=== PATIENT | male | born 1960 | race Caucasian/White ===

== ENCOUNTER → 2020-03-16 09:11 | Outpatient (CLI) | payer OTHER, SELFPAY ==
--- NOTE | ~2020-03-16 | XR_ITS ---
EXAMINATION: XR hip BI 2V w AP pelvis DATE: 03/16/2020 09:37 INDICATION: Bilateral hip pain TECHNIQUE: AP view the pelvis and two views of each hip were obtained. COMPARISON: None. FINDINGS: Bone alignment is normal. There is no fracture. There is moderate to severe left and mild-t o-moderate right hip osteoarthritis. Phleboliths are noted in the pelvis. Moderate to severe lower donna mbar spondylosis is present. IMPRESSION: 1. Moderate to severe left and mild to moderate right hip osteoarthritis. Reviewed, dictated and finalized at location A.
== END ==
PROVIDERS: PCP Internal Medicine; Visit Provider Internal Medicine
DX: M25.559 Pain in unspecified hip (principal); M16.0 Bilateral primary osteoarthritis of hip
CPT/HCPCS: 73521

== ENCOUNTER 2020-10-18 09:47 | Outpatient (CLI) | payer OTHER, SELFPAY ==
--- NOTE | 2020-10-18 11:09 | ECG_ITS ---
Measurements Intervals [place] Rate: 65 P: 24 IA: 146 QRS: -7 QRSD: 104 T: 55 QT: 380 QTc: 398 Interpretive Statements SINUS RHYTHM WITH SINUS ARRHYTHMIA POOR R WAVE PROGRESSION, ANTERIOR LEADS BASELINE ARTIFACT- I, II, AVR, AVL, AVF BORDERLINE ECG Electronically Signed On 10-18-2020 11:24:26 CDT by Jose Miguel Wagner D.O.
[2020-10-18 11:43] LABS: Urine Cotinine NEGATIVE
== END 2020-10-18 09:48 | disposition home or self-care (01) ==
PROVIDERS: PCP Internal Medicine; Visit Provider Orthopaedic Surgery
DX: Z01.818 Encounter for other preprocedural examination (principal); M16.12 Unilateral primary osteoarthritis, left hip; I49.9 Cardiac arrhythmia, unspecified; Z51.81 Encounter for therapeutic drug level monitoring; Z79.899 Other long term (current) drug therapy
CPT/HCPCS: 80307; 87081; 93005

== ENCOUNTER → 2020-10-30 08:11 | Outpatient (CLI) | payer OTHER, SELFPAY ==
[2020-10-30 19:28] LABS: SARS-CoV-2 RNA PCR Negative
== END ==
PROVIDERS: PCP Internal Medicine; Visit Provider Orthopaedic Surgery
DX: Z01.812 Encounter for preprocedural laboratory examination (principal); Z20.822 Contact with and (suspected) exposure to COVID-19
CPT/HCPCS: C9803; U0003; U0005

== ENCOUNTER 2020-10-31 00:34 | Day surgery (SDC) | payer OTHER, SELFPAY ==
[2020-10-18 10:09] VITALS: BMI 33.6
[2020-10-18 10:35] VITALS: BP 133/77; PULSE 70; RESP 16; TEMP 36.7; O2SAT 100
[2020-10-31] VITALS (12 sets, daily range): BP systolic 115–142; BP diastolic 7–82; PULSE 70–85; RESP 16–20; TEMP 35.7–37; O2SAT 94–100
--- NOTE | ~2020-10-31 | XR_ITS ---
EXAMINATION: XR hip LT min 2V DATE: 10/31/2020 13:19 INDICATION: Left hip arthroplasty. Postop. TECHNIQUE: 2 views of left hip were obtained. COMPARISON: Left hip radiographs 10/02/2020 FINDINGS: There is a total left hip arthroplasty in near-anatomic alignment. No fracture. There is ga s in the soft tissues, consistent with recent surgery. IMPRESSION: 1. Total left hip arthroplasty in near-anatomic alignment. Reviewed, dictated and finalized at location A.
--- NOTE | 2020-10-31 07:19 | WPDHPUPDATE1 ---
History and Physical Update Update Date/Time: 10/31/20 07:19 History and Physical has been reviewed, including an updated exam of the patient. There are NO changes in the patient's condition. Risks, benefits, and alternatives have been discussed and questions answered. Patient agrees to proceed with procedure.
--- NOTE | 2020-10-31 08:51 | WPDANESEPPF ---
Anes - Initial Pre Proc Eval Procedure: Operation Date: 10/31/20 10:30 Proposed Procedures p Left Total Hip Arthroplasty - Ja Macdonald MD Date/Time: 10/31/20 08:51 Surgeon: Ja Macdonald MD Pre Op Diagnosis: Left Hip OA Patient Data Age: 59 Gender: M Height: 5 ft 8 in Weight: 100.3 kg Last Vital Signs Temp 36.7 C 10/18/20 10:35 Pulse 70 10/18/20 10:35 Resp 16 10/18/20 10:35 BP 133/77 10/18/20 10:35 Pulse Ox 100 10/18/20 10:35 Allergies Allergy/AdvReac Type Severity Reaction Status Date / Time No Known Allergies Allergy Verified 10/18/20 10:10 Home Medications Medication Instructions Recorded Confirmed Type aspirin 81 mg tablet,delayed 81 mg PO DAILY 06/16/19 10/18/20 History release multivitamin 1 tablet PO DAILY #1 tablet 06/16/19 10/18/20 Rx blood sugar diagnostic #100 each 04/19/20 10/02/20 Rx blood-glucose meter #1 each 04/19/20 10/02/20 Rx empagliflozin 10 mg tablet 10 mg PO DAILY #90 tablet 10/03/20 10/18/20 Rx Emergen-C Immune Plus 1 tablet PO DAILY 10/18/20 10/18/20 History cholecalciferol (vitamin D3) 50 mcg PO DAILY 10/18/20 10/18/20 History lisinopril 10 mg PO QAM 10/18/20 10/18/20 History metformin 500 mg PO QPM 10/18/20 10/18/20 History naproxen sodium [Aleve] 440 mg PO PRN PRN 10/18/20 10/18/20 History Patient hx anesthesia problems: none Family hx anesthesia problems: none PMFSH Past Medical History Medical History Deviated septum (~1996) Diabetes Dyslipidemia Elevated blood pressure reading Essential hypertension Fatty liver Primary osteoarthritis of both hips Trochanteric bursitis Social History Social History Smoking status: Never smoker Additional smoking assessment comments: DENIES ANY FORM OF TOBACCO USE Alcohol intake: current Drinks per week: 3 Substance use: never Living arrangements: with family Gender identity (if verbalized by the patient): Male Spiritual care concerns: No Anes - Eval Final PreProcedure Day of Procedure 10/31/20 08:51 Patient weight: obese Heart: regular rate and rhythm Lungs: clear to auscultation Airway: Mallampati scale class III Neurological: alert and oriented Last oral intake: >/= 8 hours ASA classification: III Emergent: no Anesthetic plan: proceed Anesthesia type and monitoring: general ETT and standard monitoring Informed Consent: The patient's anesthetic plan and its attendant risks and benefits were discussed with the patient/family/POA. Questions were solicited and answers provided to the satisfaction of the patient/family/POA.
[2020-10-31] MEDS: LACTATED RINGERS 1,000 ML 30 ML IV CONT ×2 (09:00→12:59)
[2020-10-31] MEDS: ACETAMINOPHEN 500 MG TABLET 1000 MG PO (09:17)
[2020-10-31] MEDS: TRANEXAMIC ACID 1,000MG/ISO100 1,000 MG/100 ML BAG 200 MG IVPB (09:17)
[2020-10-31 09:26] LABS: Glucose Point of Care 120 (65-105)
[2020-10-31] MEDS: ceFAZolin 2 GM/D5W 50 ML 2 GM/50 ML BAG IVPB (10:18)
[2020-10-31 13:07] LABS: Glucose Point of Care 153 (65-105)
--- NOTE | 2020-10-31 13:44 | PM.PROC ---
Procedure Note - Detailed Date of procedure: 10/31/20 Pre-op diagnosis: Left Hip OA Post-op diagnosis: same Procedure performed: Total hip arthroplasty. Description of procedure: Very large anterior osteophyte in the capsule, excised. Bone quality very good. Proximal fit was excellent; distal reaming not required. Pre op leg length slightly short. Implants: The Accolade II hip stem, 127 degree size 5 , was utilized with excellent press-fit. The 54 mm ADM acetabular component was impacted with excellent press-fit stability. The +0 , 28 mm Biolox ceramic femoral head was utilized. Anesthesia: [facility] Surgeon: Ja Macdonald MD Malt Loader: Matilde Nath PA-C Estimated blood loss (mL): 200 Drains: No Pathology: none sent Complications: None Condition: stable Findings: Physician technical services assistant, Matilde Nath PA-C, required for surgery; including patient positioning, draping, tissue retraction, maintaining instrument position, dislocation and reduction of the hip joint. Wound closure, and dressing placement. OPERATIVE DETAILS: The patient was given preoperative antibiotics. A general anesthetic was administered. The patient was carefully placed in the lateral decubitus position on the PEG board. The shoulders and hips were carefully positioned for component and leg length positioning reference. The hip was prepped and draped in the usual sterile fashion. A longitudinal incision was created over the posterior aspect of the greater trochanter. Careful dissection was brought down through the deep fascia with electrocautery. A minimally invasive optimized posterior approach to the hip was performed. The short external rotators and capsule were taken down in an L-shaped capsulotomy. The tissue was tagged for later repair using number 2 high strength suture. The femoral neck was measured and taken in situ. The femoral head was removed. The acetabulum was carefully exposed. The inferior capsule was released. The labrum was resected. The acetabulum was sequentially reamed to one over the intended cup size. The cup was impacted into position with excellent press-fit. Typical anatomic landmarks, including the bony contact points as well as the inferior transverse acetabular ligament were used to confirm cup positioning with preoperative templating. Attention was turned to the femur, which was carefully exposed. The hip was reamed and then broached sequentially. Excellent press-fit was obtained with the broach. The hip was trialed. Measurements were utilized, including the lesser trochanter as well as the center of the femoral head and the tip of the trochanter, and excellent assessment of the offset and leg lengths were confirmed. The real component was impacted into position. Trialing confirmed appropriate leg length and offset with soft tissue balancing as well apparent feel of the leg, both at the knee and the heel. Soft tissues were assessed using the the iliotibial band. Reduction of the posterior capsule and external rotators were also used as a secondary assessment. The hip was copiously irrigated with pulsatile lavage antibiotic solution periodically throughout the procedure. The real components were then assembled and reduced. The hip was stable throughout typical maneuvers, including extension, external rotation to 70 degrees, the position of sleep as well as flexion to 90 degrees with internal rotation past 45 degrees. The shake test confirmed stability without impingement. Osteophytes were removed as necessary. The short external rotators and capsule were repaired back to the posterior trochanter through drill holes. The deep fascia was repaired with running number 2 Quill suture, followed by 0 Stratafix suture and 2-0 Stratafix suture in the dermis. Steri-Strips were placed on the skin, followed by a sterile silver occlusive dressing. There were no complications. Meticulous hemostasis was maintained with the AquaMantys device. The patient was brought to t
[2020-10-31] MEDS: SODIUM CHLORIDE 0.9% IV 1,000 ML 125 ML IV CONT (14:16)
[2020-10-31] MEDS: KETOROLAC 15 MG/ML VIAL (*BKC) IV PUSH ×2 (14:16→20:47)
[2020-10-31 14:20] LABS: Hemoglobin 14.6 g/dL (14.0-18.0)
--- NOTE | 2020-10-31 14:34 | ADMGEN ---
This patient, Satnam Dawson, was admitted to 2 Medical Room 258-01. Patient/family oriented to hospital policies and general routines including ID bracelet, bed and alarms, visiting hours, pain management, procedures, bathroom and other care routines, personal items, smoking policy, room service/diet, and visiting hours. Information on how to activate the Rapid Response Team has been discussed. Patient/Family are encouraged to report perceived risks to care and to ask questions if they do not understand what they are told or what they should do.
[2020-10-31] MEDS: oxyCODONE HCL (*CRX) 5 MG TAB IR 10 MG PO (14:48)
[2020-10-31] MEDS: ONDANSETRON INJ 4 MG/2 ML VIAL IV PUSH (15:17)
[2020-10-31] MEDS: DOCUSATE SODIUM 100 MG CAPSULE PO (18:32)
[2020-10-31] MEDS: metFORMIN HCL 500 MG TABLET PO (18:33)
[2020-10-31] MEDS: oxyCODONE HCL (*CRX) 5 MG TAB IR PO (18:33)
[2020-10-31 18:47] LABS: Glucose Point of Care 183 (65-105)
[2020-10-31 22:52] LABS: Glucose Point of Care 147 (65-105)
[2020-11-01 02:00] VITALS: BP 118/69; PULSE 79; RESP 18; TEMP 36.6; O2SAT 100
[2020-11-01] MEDS: KETOROLAC 15 MG/ML VIAL (*BKC) IV PUSH ×2 (02:56→08:06)
[2020-11-01 05:29] LABS: Basophils Percent Auto 0.3 % (0.2-1.2); Eosinophils Absolute Auto 0.1 K/mm3 (0-0.3); Eosinophils Percent Auto 0.7 % (0-4.4); Hematocrit 38.3 % (42.0-52.0); Hemoglobin 12.9 g/dL (14.0-18.0); Immature Granulocyte Absolute 0.06 K/mm3 (0.00-0.031); Immature Granulocyte Percent A 0.4 % (0-0.5); Lymphocytes Absolute Auto 2.26 K/mm3 (0.9-3.2); Lymphocytes Percent Auto 16.9 % (18.3-44.2); Mean Corpuscular HGB Conc 33.7 g/dl (32-36); Mean Corpuscular Hemoglobin 30.2 pg (26-34); Mean Corpuscular Volume 89.7 fl (80-100); Mean Platelet Volume 9.6 fl (7.4-10.4); Monocytes Absolute Auto 1.6 K/mm3 (0.1-0.6); Monocytes Percent Auto 11.6 % (2.6-8.5); Neutrophils Absolute Auto 9.4 K/mm3 (1.3-6.7); Neutrophils Percent Auto 70.1 % (45.5-73.1); Platelet Count Result 195 k/mm3 (150-375); Red Blood Count 4.27 M/mm3 (4.6-6.20); Red Cell Distribution Width 13.3 % (11.5-14.5); White Blood Count 13.4 K/mm3 (4.5-10.0)
[2020-11-01 05:42] LABS: Anion Gap 6 mmol/L (8-16); Blood Urea Nitrogen 18 mg/dL (9-20); Calcium 8.5 mg/dL (8.4-10.2); Carbon Dioxide 25 mmol/L (22-30); Chloride 107 mmol/L (98-107); Estimated CRCL calculation 89 ml/min; Estimated Glomerular Filt Rate > 60; Glucose 104 mg/dL (75-110); Sodium 138 mmol/L (137-145)
[2020-11-01 06:17] VITALS: BP 122/78; PULSE 80; RESP 16; TEMP 36.8; O2SAT 98
[2020-11-01 07:44] LABS: Glucose Point of Care 96 (65-105)
--- NOTE | 2020-11-01 07:56 | WPDANESPN ---
Anes - Prog Note Post-Op Date/Time: 11/01/20 07:56 Cardiovascular status: normal Respiratory status: normal Airway patency: baseline Mental status: baseline Post-Op hydration status: normal Vital Signs: Last Vital Signs Temp 36.8 C 11/01/20 06:17 Pulse 80 11/01/20 06:17 Resp 16 11/01/20 06:17 BP 122/78 11/01/20 06:17 Pulse Ox 98 11/01/20 06:17 Pain Score (VAS): 2 I/O: Intake & Output 10/31/20 10/31/20 11/01/20 15:59 23:59 07:59 Intake Total 450 770 550 Output Total 450 450 Balance 450 320 100 Laboratory Tests 11/01/20 05:18 11/01/20 05:18 10/31/20 10/31/20 10/31/20 08:51 09:19 13:04 WBC RBC Hgb Hct MCV MCH MCHC RDW Plt Count MPV Immature Gran % (Auto) Neut % (Auto) Lymph % (Auto) [place] % (Auto) Eos % (Auto) Baso % (Auto) Lymph # (Auto) [place] # (Auto) Eos # (Auto) Baso # (Auto) Abs Immat Gran (auto) Absolute Neuts (auto) Absolute Nucleated RBC Nucleated RBC % Sodium Potassium Chloride Carbon Dioxide Anion Gap BUN Creatinine Estim Creat Clear Calc Estimated GFR Glucose POC Capillary Glucose 120 H 153 H Calcium Blood Type A Positive Antibody Screen Negative 10/31/20 10/31/20 10/31/20 14:12 18:32 20:45 WBC RBC Hgb 14.6 Hct 43.0 MCV MCH MCHC RDW Plt Count MPV Immature Gran % (Auto) Neut % (Auto) Lymph % (Auto) [place] % (Auto) Eos % (Auto) Baso % (Auto) Lymph # (Auto) [place] # (Auto) Eos # (Auto) Baso # (Auto) Abs Immat Gran (auto) Absolute Neuts (auto) Absolute Nucleated RBC Nucleated RBC % Sodium Potassium Chloride Carbon Dioxide Anion Gap BUN Creatinine Estim Creat Clear Calc Estimated GFR Glucose POC Capillary Glucose 183 H 147 H Calcium Blood Type Antibody Screen 11/01/20 11/01/20 11/01/20 05:18 05:18 07:14 WBC 13.4 H RBC 4.27 L Hgb 12.9 L Hct 38.3 L MCV 89.7 MCH 30.2 MCHC 33.7 RDW 13.3 Plt Count 195 MPV 9.6 Immature Gran % (Auto) 0.4 Neut % (Auto) 70.1 Lymph % (Auto) 16.9 L [place] % (Auto) 11.6 H Eos % (Auto) 0.7 Baso % (Auto) 0.3 Lymph # (Auto) 2.26 [place] # (Auto) 1.6 H Eos # (Auto) 0.1 Baso # (Auto) 0.0 Abs Immat Gran (auto) 0.06 H Absolute Neuts (auto) 9.4 H Absolute Nucleated RBC 0.0 Nucleated RBC % 0.0 Sodium 138 Potassium 4.0 Chloride 107 Carbon Dioxide 25 Anion Gap 6 L BUN 18 Creatinine 0.90 Estim Creat Clear Calc 89 Estimated GFR > 60 Glucose 104 POC Capillary Glucose 96 Calcium 8.5 Blood Type Antibody Screen Post-procedural complaints: none Patient Feedback: Patient satisfied with anesthetic care.
[2020-11-01] MEDS: MULTIVITAMINS THERAPEUTIC TAB (*BKC) 1 TABLET PO (08:04)
[2020-11-01] MEDS: lisinopriL 10 MG TABLET PO (08:04)
[2020-11-01] MEDS: ASPIRIN 81 MG ENTERIC TABLET PO (08:04)
[2020-11-01] MEDS: CHOLECALCIFEROL 1,000 UNITS TABLET 2000 UNITS PO (08:05)
[2020-11-01] MEDS: DOCUSATE SODIUM 100 MG CAPSULE PO (08:05)
[2020-11-01 10:00] VITALS: BP 127/64; PULSE 89; RESP 12; TEMP 36.6; O2SAT 98
[2020-11-01 10:41] VITALS: O2SAT 96
--- NOTE | 2020-11-01 10:44 | PM.IMCN ---
Assessment and Plan Assessment and plan (1) S/P total hip arthroplasty: Code(s): Z96.649 - Presence of unspecified artificial hip joint Status: Acute Assessment and Plan: Status post total hip arthroplasty by Dr. Macdonald 10/31/20 with no immediate complications -I have contacted Dr. Macdonald about DVT prophylactic medications -he is doing well with therapy, continue with that -encourage spirometer -likely discharge today or tomorrow (2) Osteoarthritis: Code(s): M19.90 - Unspecified osteoarthritis, unspecified site Status: Acute Assessment and Plan: Chronic (3) Type 2 diabetes mellitus: Code(s): E11.9 - Type 2 diabetes mellitus without complications Status: Inactive Assessment and Plan: Last glucose 96 -continue with home metformin -I did recommend for the patient to skip today's Jardiance due to decreased appetite as he does not like the hospital food -will be discharged on his regular home meds -A1c he reports as 5.7 (4) Essential hypertension: Code(s): I10 - Essential (primary) hypertension Status: Acute Assessment and Plan: Last blood pressure 127/64 -continue lisinopril Additional Plan Thank you for allowing us to consult with this patient's case. We will continue to follow along. Dr. Head is the supervising physician for this consult H&P HPI Data of Consult Consult date: 11/01/20 Requesting Physician: Ja Macdonald MD Primary Care Provider: William Del Rosario MD Consult Narrative Narrative: Satnam Dawson is a 59 year old male with a past medical history of diabetes, hypertension and hyperlipidemia who is here for an elective left hip arthroplasty. Patient states that he has had longstanding arthritis and discomfort when walking especially in his left hip. He has a very active jostin and likes to do a lot of yard work and constantly was having issues. He tried oral medications and injections which did not improve his pain. He decided to undergo an elective total hip arthroplasty 10/31/20. Patient states today he is feeling well. He reports his pain a 4/10 at rest with no numbness or tingling. He has been working with physical therapy and was able to get all his clothes on, walk the halls, and work on stairs. He also has a at home that will help him with his daily activities. He states his pain is still a 4/10 during these activities and a 4/10 at rest. He says the pain medication is helping although it is causing constipation. He denies nausea, vomiting, chest pain, shortness of breath, fevers, chills, diarrhea, or cough. He mentions his last A1c is 5.7. Review of Systems Review of Systems: All systems reviewed & are unremarkable except as noted in HPI and below PMFSH Past Medical History Medical History (Updated 11/01/20 @ 10:48 by Luz Freedman PA-C) Deviated septum (~1996) Diabetes Dyslipidemia Elevated blood pressure reading Essential hypertension Fatty liver Primary osteoarthritis of both hips Trochanteric bursitis Type 2 diabetes mellitus Surgical History Surgical History (Updated 11/01/20 @ 10:48 by Luz Freedamn PA-C) History of hernia surgery History of tonsillectomy Family History Family History (Updated 11/01/20 @ 10:49 by Luz Freedman PA-C) Mother Hypertension Father Diabetes mellitus Heart disease Social History Social History (Updated 11/01/20 @ 10:50 by Luz Freedman PA-C) Social History: Full code, surrogate decision maker would be his , 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 Smoking status: Former smoker Alcohol intake: current Drinks per week: 4 Substance use: never Substance use type: does not use Living arrangements: with family Gender identity (if verbalized by the patient): Male Spiritual care concerns: No Meds Home Medications and Allergies Home Med
--- NOTE | 2020-11-01 11:09 | PM.DS ---
DS: Admitting Diagnosis Admitting Diagnosis Admitting Diagnosis: OA Left hip DS: Discharge Diagnosis Discharge Diagnosis (1) S/P total hip arthroplasty: Code(s): Z96.649 - Presence of unspecified artificial hip joint Status: Acute Assessment and Plan: Postop day 1: Left total Hip arthroplasty. Patient tolerated procedure well. No complications. Pain manageable with pain medication. No numbness or tingling. Patient had a very large anterior osteophyte in the capsule. Concern for developing Hypertrophic Ossification. Will start patient on Indomethacin for 6 weeks. Patient will need to stop Aleve. We had a lengthy discussion regarding postoperative wound care, limitations, expectations, and exercises. Patient shows good understanding. He has had initial physical therapy and is tolerating it well. DVT prophylaxis: 81 mg baby aspirin b.i.d. for 14 days. Pain medication: Percocet. Patient has followup appointment with Dr. Macdonald in 3 weeks. DS: Summary Hospital Course Reason for hospitalization: Total hip arthroplasty Hospital Course: Patient tolerated procedure well. Has had initial PT/OT. Status at Discharge Functional status at discharge: uses cane/walker Overall status at discharge: patient is progressing back to baseline Time Spent with Patient Time attestation: Total time spent providing and/or coordinating discharge services: Exam Narrative: Exam Narrative: Pleasant overweight male. Resting comfortably in chair. Wearing compression socks bilaterally. Dressing dry and intact with no drainage. Moderate swelling. No ecchymosis. No erythema. No hematoma. Range of motion limited due to pain. Calf nontender. Thigh nontender. Neurologic status intact. No varicosities. Distal pulses palpable. DS: Data Data Completed and Pending Labs on day of discharge: Labs from last 24 hours 11/01/20 11/01/20 11/01/20 07:14 05:18 05:18 WBC 13.4 H RBC 4.27 L Hgb 12.9 L Hct 38.3 L MCV 89.7 MCH 30.2 MCHC 33.7 RDW 13.3 Plt Count 195 MPV 9.6 Immature Gran % (Auto) 0.4 Neut % (Auto) 70.1 Lymph % (Auto) 16.9 L [place] % (Auto) 11.6 H Eos % (Auto) 0.7 Baso % (Auto) 0.3 Lymph # (Auto) 2.26 [place] # (Auto) 1.6 H Eos # (Auto) 0.1 Baso # (Auto) 0.0 Abs Immat Gran (auto) 0.06 H Absolute Neuts (auto) 9.4 H Absolute Nucleated RBC 0.0 Nucleated RBC % 0.0 Sodium 138 Potassium 4.0 Chloride 107 Carbon Dioxide 25 Anion Gap 6 L BUN 18 Creatinine 0.90 Estim Creat Clear Calc 89 Estimated GFR > 60 Glucose 104 POC Capillary Glucose 96 Calcium 8.5 10/31/20 10/31/20 10/31/20 20:45 18:32 14:12 WBC RBC Hgb 14.6 Hct 43.0 MCV MCH MCHC RDW Plt Count MPV Immature Gran % (Auto) Neut % (Auto) Lymph % (Auto) [place] % (Auto) Eos % (Auto) Baso % (Auto) Lymph # (Auto) [place] # (Auto) Eos # (Auto) Baso # (Auto) Abs Immat Gran (auto) Absolute Neuts (auto) Absolute Nucleated RBC Nucleated RBC % Sodium Potassium Chloride Carbon Dioxide Anion Gap BUN Creatinine Estim Creat Clear Calc Estimated GFR Glucose POC Capillary Glucose 147 H 183 H Calcium 10/31/20 13:04 WBC RBC Hgb Hct MCV MCH MCHC RDW Plt Count MPV Immature Gran % (Auto) Neut % (Auto) Lymph % (Auto) [place] % (Auto) Eos % (Auto) Baso % (Auto) Lymph # (Auto) [place] # (Auto) Eos # (Auto) Baso # (Auto) Abs Immat Gran (auto) Absolute Neuts (auto) Absolute Nucleated RBC Nucleated RBC % Sodium Potassium Chloride Carbon Dioxide Anion Gap BUN Creatinine Estim Creat Clear Calc Estimated GFR Glucose POC Capillary Glucose 153 H Calcium Discharge Plan Discharge Patient Disposition: Home, Self-Care Discharge Instructions: See Blue instruction sheet. Patient Inst
[2020-11-01] MEDS: oxyCODONE HCL (*CRX) 5 MG TAB IR PO (11:42)
== END 2020-11-01 11:49 | disposition home or self-care (01) ==
LOC: ANHSURGERY 08:31 → ANH2MED 14:00
PROVIDERS: PCP Internal Medicine; Visit Provider Orthopaedic Surgery
PROC: (CPT 27130; principal; 2020-10-31 10:30)
DX: M16.12 Unilateral primary osteoarthritis, left hip (principal); M25.752 Osteophyte, left hip; I10 Essential (primary) hypertension; E78.5 Hyperlipidemia, unspecified; E11.9 Type 2 diabetes mellitus without complications; K76.0 Fatty (change of) liver, not elsewhere classified; E66.9 Obesity, unspecified; Z68.32 Body mass index [BMI] 32.0-32.9, adult; Z79.82 Long term (current) use of aspirin; Z79.84 Long term (current) use of oral hypoglycemic drugs
CPT/HCPCS: 27130; 36415; 73502; 80048; 80307; 85014; 85018; 85025; 86850; 86900; 86901; 87081; 93005; 97110; 97116; 97161; 97165; 97530; A9270; C1776; C9803; J0131; J0171; J0330; J0690; J1100; J1170; J1885; J2001; J2250; J2270; J2405; J2704; J2795; J3010; J7030; J7120; U0003; U0005

== ENCOUNTER 2024-05-21 09:07 | Outpatient (CLI) | payer OTHER, SELFPAY ==
--- NOTE | ~2024-05-21 | US_ITS ---
US abdomen limited INDICATION: Abnormal laboratory values. PROCEDURE: Realtime right upper abdominal ultrasound. COMPARISON: No prior studies for comparison. FINDINGS: The pancreas is normal without focal mass or pancreatic ductal dilation. Liver echotexture is increased, consistent with fatty infiltration There is normal directional flow in the portal vei n. The gallbladder is normal without stones, gallbladder wall thickening or pericholecystic fluid. Comm on bile duct measures 4 mm. No sonographic Mcdonough's sign. IMPRESSION: 1: Fatty infiltration of the liver. Reviewed, dictated and finalized at location B.
== END 2024-05-21 09:08 | disposition home or self-care (01) ==
PROVIDERS: PCP Family Medicine; Visit Provider Family Medicine
DX: K76.0 Fatty (change of) liver, not elsewhere classified (principal); R74.8 Abnormal levels of other serum enzymes
CPT/HCPCS: 76705

== ENCOUNTER 2024-06-07 00:26 | Day surgery (SDC) | payer OTHER, SELFPAY ==
[2024-05-27 13:09] VITALS: BMI 33.3
[2024-06-07 08:13] VITALS: BP 126/83; PULSE 64; RESP 16; TEMP 35.8; O2SAT 98; BMI 33.0
[2024-06-07 08:19] LABS: Glucose Point of Care 107 mg/dl (65-105)
[2024-06-07] MEDS: LACTATED RINGERS 1,000 ML 150 ML IV CONT (08:25)
--- NOTE | 2024-06-07 09:00 | PM.IMHP ---
H&P: HPI History of Present Illness Date/Time: 06/07/24 09:00 Chief Complaint: screening colonoscopy Narrative: This is the patient's 2nd colonoscopy. the previous one was 10 years ago.There are no GI symptoms and there is no family history of colorectal cancer. Review of Systems Review of Systems: All systems reviewed & are unremarkable except as noted in HPI and below PMFSH Past Medical History Medical History Deviated nasal septum Deviated septum (~1996) Diabetes Dyslipidemia Elevated blood pressure reading Essential hypertension Fatty liver Primary osteoarthritis of both hips Trochanteric bursitis Type 2 diabetes mellitus Surgical History Surgical History History of hernia surgery History of tonsillectomy History of total left hip replacement (~10/31/20) Family History Family History Mother Hypertension Father Diabetes mellitus Heart disease Social History Social History Social History: Full code, surrogate decision maker would be his , 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 Smoking status: Never smoker Second hand tobacco smoke exposure: No Alcohol intake: current Drinks per week: 4 Alcohol use details: Has a beer on occasion Substance use: never Substance use type: does not use Lack of Transportation: No Lack of Food: Never True Current Housing: I Have Housing Concerned About Future Housing: No Difficulty Paying Gas/Electric Bills: No Difficulty Paying for Meds: No Currently Unemployed: No Education: Bachelor's Degree Difficulty w/ Childcare or Family Care: No Living arrangements: alone Gender identity (if verbalized by the patient): Male Spiritual care concerns: No Meds Home Medications and Allergies Home Medications Medication Instructions Recorded Confirmed Type multivitamin 1 tablet PO DAILY #1 tablet 06/16/19 06/07/24 Rx blood-glucose meter (Accu-Chek #1 ea 04/19/20 11/05/22 Rx Guide Glucose Meter) cholecalciferol (vitamin D3) 50 50 mcg PO DAILY 10/18/20 06/07/24 History mcg (2,000 unit) tablet lisinopril 10 mg tablet 10 mg PO QAM #90 tabs 03/17/23 06/07/24 Rx blood sugar diagnostic (Accu-Chek #100 strips 03/30/24 Rx Guide test strips) rosuvastatin 5 mg tablet See Rx Instructions .Route 04/12/24 06/07/24 Rx .COMPLEX #90 tabs metformin 500 mg tablet See Rx Instructions .Route 05/13/24 06/07/24 Rx .COMPLEX #90 tabs semaglutide 7 mg tablet (Rybelsus) See Rx Instructions .Route 05/31/24 06/07/24 Rx .COMPLEX #90 tabs Allergies Allergy/AdvReac Type Severity Reaction Status Date / Time No Known Allergies Allergy Verified 06/07/24 08:11 Vital Signs Vital Signs - 24 hr 06/07/24 08:13 Temperature 96.4 F L Pulse Rate 64 Respiratory Rate 16 Blood Pressure 126/83 Pulse Oximetry 98 Oxygen Delivery Room Air Exam Const: General: cooperative and healthy appearing Resp: Effort & Inspection: normal respiratory effort and able to speak in complete sentences Auscultation: clear to auscultation bilaterally Cardio: Rate: regular rate Rhythm: regular rhythm GI: Inspection: normal to inspection GI Palp: No No hepatosplenomegaly present Auscultation: normal bowel sounds Rectal Exam: deferred Skin: General skin exam: normal color Psych: Appearance: grossly normal Mental Status: mental status grossly normal Assessment and Plan Assessment and plan (1) Colon cancer screening: Code(s): Z12.11 - Encounter for screening for malignant neoplasm of colon Status: Acute Assessment and Plan: The patient is deemed a good candidate for the procedure. Consent signed. Will proceed.
--- NOTE | 2024-06-07 09:07 | P.PNAN_ITS ---
Anes - Initial Pre Proc Eval Procedure: Operation Date: 06/07/24 09:30 Proposed Procedures p Screening Colonoscopy - Monroe Solis MD Date/Time: 06/07/24 09:07 Surgeon: Monroe Solis MD Pre Op Diagnosis: neoplasm screening Pre Op Diagnosis: screening colon Patient Data Age: 63 Gender: M Height: 1.73 m Weight: 98.5 kg Last Vital Signs Temp 35.8 C L 06/07/24 08:13 Pulse 64 06/07/24 08:13 Resp 16 06/07/24 08:13 BP 126/83 06/07/24 08:13 Pulse Ox 98 06/07/24 08:13 O2 Del Method Room Air 06/07/24 08:13 Allergies Allergy/AdvReac Type Severity Reaction Status Date / Time No Known Allergies Allergy Verified 06/07/24 08:11 Home Medications Medication Instructions Recorded Confirmed Type multivitamin 1 tablet PO DAILY #1 tablet 06/16/19 06/07/24 Rx blood-glucose meter (Accu-Chek #1 ea 04/19/20 11/05/22 Rx Guide Glucose Meter) cholecalciferol (vitamin D3) 50 50 mcg PO DAILY 10/18/20 06/07/24 History mcg (2,000 unit) tablet lisinopril 10 mg tablet 10 mg PO QAM #90 tabs 03/17/23 06/07/24 Rx blood sugar diagnostic (Accu-Chek #100 strips 03/30/24 Rx Guide test strips) rosuvastatin 5 mg tablet See Rx Instructions .Route 04/12/24 06/07/24 Rx .COMPLEX #90 tabs metformin 500 mg tablet See Rx Instructions .Route 05/13/24 06/07/24 Rx .COMPLEX #90 tabs semaglutide 7 mg tablet (Rybelsus) See Rx Instructions .Route 05/31/24 06/07/24 Rx .COMPLEX #90 tabs Laboratory Tests 06/07/24 08:17 POC Capillary Glucose 107 H mg/dl (65-105) Patient hx anesthesia problems: none Family hx anesthesia problems: none Results Review: All pre-operative results and documents have been reviewed as part of the pre- operative evaluation. [facility] Past Medical History Medical History Deviated nasal septum Deviated septum (~1996) Diabetes Dyslipidemia Elevated blood pressure reading Essential hypertension Fatty liver Primary osteoarthritis of both hips Trochanteric bursitis Type 2 diabetes mellitus Surgical History Surgical History History of hernia surgery History of tonsillectomy History of total left hip replacement (~10/31/20) Family History Family History Mother Hypertension Father Diabetes mellitus Heart disease Social History Social History Social History: Full code, surrogate decision maker would be his , 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 Smoking status: Never smoker Second hand tobacco smoke exposure: No Alcohol intake: current Drinks per week: 4 Alcohol use details: Has a beer on occasion Substance use: never Substance use type: does not use Lack of Transportation: No Lack of Food: Never True Current Housing: I Have Housing Concerned About Future Housing: No Difficulty Paying Gas/Electric Bills: No Difficulty Paying for Meds: No Currently Unemployed: No Education: Bachelor's Degree Difficulty w/ Childcare or Family Care: No Living arrangements: alone Gender identity (if verbalized by the patient): Male Spiritual care concerns: No Anes - Eval Final PreProcedure Day of Procedure 06/07/24 09:07 Patient weight: obese Heart: regular rate and rhythm Lungs: clear to auscultation Airway: Mallampati scale class II Neurological: alert and oriented Last oral intake: >/= 8 hours ASA classification: II Emergent: no Anesthetic plan: proceed Anesthesia type and monitoring: general GIVS and standard monitoring Results Review: All pre-operative results and documents have been reviewed as part of the pre- operative evaluation. Informed Consent: The patient's anesthetic plan and its attendant risks and benefits were discussed with the patient/family/POA. Questions were solicited and answers provided to the satisfaction of the patient/family/POA.
[2024-06-07] MEDS: SIMETHICONE ORAL SUSPENSION 20 MG/0.3 ML 30 ML BOTTLE 0.6 ML IRRIGATION (09:19)
[2024-06-07 09:34] VITALS: BP 109/74; PULSE 68; RESP 18; O2SAT 100
[2024-06-07 09:44] VITALS: BP 125/68; PULSE 65; RESP 21; O2SAT 100
[2024-06-07 09:54] VITALS: BP 128/78; PULSE 66; RESP 24; O2SAT 96
== END 2024-06-07 10:06 | disposition home or self-care (01) ==
PROVIDERS: PCP Family Medicine; Visit Provider Internal Medicine Gastroenterology
PROC: 0DJD8ZZ Inspection of Lower Intestinal Tract, Via Natural or Artificial Opening Endoscopic (ICD-10-PCS; CPT 45378; principal; 2024-06-07 09:30)
DX: Z12.11 Encounter for screening for malignant neoplasm of colon (principal); K62.1 Rectal polyp; K57.30 Diverticulosis of large intestine without perforation or abscess without bleeding; K64.8 Other hemorrhoids; Z79.84 Long term (current) use of oral hypoglycemic drugs; E11.9 Type 2 diabetes mellitus without complications; I10 Essential (primary) hypertension; E66.9 Obesity, unspecified; Z68.33 Body mass index [BMI] 33.0-33.9, adult
CPT/HCPCS: 45385; 82948; 88305; J2003; J2704; J7120